=== PATIENT | male | born 1960 | race Hispanic/Latino ===

== ENCOUNTER 2019-01-08 05:43 | Emergency (ER) | payer MEDICARE ==
[~2019-01-08] VITALS: Ht 177.8 cm; Wt 75.7 kg
[2019-01-08] MEDS ORDERED: TETANUS/DIPHTHERIA TOX ADULT 0.5 ML SYR IM ONE (06:15)
[2019-01-08] MEDS ORDERED: LIDOCAINE HCL 1% LOCAL INJ 20 ML VIAL ONE (06:41)
[2019-01-08] MEDS ORDERED: LIDOCAINE 1% 5ML-MPF INJ ONE (06:45)
--- NOTE | 2019-01-08 06:48 | Diagnostic Imaging Report ---
Fingers Indication: Board fell on second digit with laceration Technique: Three views of the left second digit obtained Comparison: None Findings: Comminuted, nondisplaced fracture of the distal phalanx of the second digit at the tuft. There are 2 radiopaque foreign bodies in the soft tissues at the volar aspect of the distal phalanx. No dislocation of the distal IP joint. Remainder of the digit and visualized bones of the hand are unremarkable. IMPRESSION: Comminuted, nondisplaced fracture of the distal phalanx of the second digit corresponding to crush injury with two radiopaque foreign bodies in the volar soft tissues. Signed by: Dr. Aric Borges MD on 01/08/2019 6:44 AM
== END 2019-01-08 07:19 | disposition home or self-care (01) ==
LOC: ER 05:43
DX: S62.661B Nondisplaced fracture of distal phalanx of left index finger, initial encounter for open fracture (principal); W22.8XXA Striking against or struck by other objects, initial encounter; Y92.008 Other place in unspecified non-institutional (private) residence as the place of occurrence of the external cause; K74.60 Unspecified cirrhosis of liver
CPT/HCPCS: 64450; 73140; 90471; 90714; 99283; J2001